=== PATIENT | female | born 1995 | race Hispanic/Latino ===

== ENCOUNTER 2019-04-03 17:46 | Emergency (ER) | payer SELFPAY ==
--- NOTE | 2019-04-03 18:01 | ER ---
Nurse's Notes [facility] Name: Tere Felix Age: 24 yrs Sex: Female : 1995 Arrival Date: 04/03/2019 Time: 17:46 Bed 24 Private MD: Unknown, Unknown Diagnosis: Pulpitis Presentation: 04/03 17:53 Presenting complaint: Patient states: toothache on the lower left side, reports taking em (6) 500 mg pills of Tylenol today for the pain, denies fever. Transition of care: patient was not received from another setting of care. Onset of symptoms was April 03, 2019. Risk Assessment: Do you want to hurt yourself or someone else? Patient reports no desire to harm self or others. Initial Sepsis Screen: Does the patient meet any 2 criteria? No. Patient's initial sepsis screen is negative. Does the patient have a suspected source of infection? No. Patient's initial sepsis screen is negative. Care prior to arrival: None. 17:53 Method Of Arrival: Ambulatory em 18:00 Acuity: PROSPER 5 ss Historical: - Allergies: 17:55 No Known Allergies; em - Home Meds: 17:55 None [Active]; em - PMHx: 17:55 None; em - PSHx: 17:55 None; em - Immunization history:: Adult Immunizations up to date. - Social history:: Smoking status: Patient/guardian denies using tobacco. - Ebola Screening: : Patient negative for fever greater than or equal to 101.5 degrees Fahrenheit, and additional compatible Ebola Virus Disease symptoms Patient denies exposure to infectious person Patient denies travel to an Ebola-affected area in the 21 days before illness onset No symptoms or risks identified at this time. Screenin:56 Abuse screen: Denies threats or abuse. Nutritional screening: No deficits noted. em Tuberculosis screening: No symptoms or risk factors identified. Fall Risk None identified. Assessment: 17:56 General: Appears in no apparent distress. comfortable, Behavior is calm, appropriate em for age, Denies fever. Pain: Complains of pain in left submandibular area Pain currently is 5 out of 10 on a pain scale. Neuro: Level of Consciousness is awake, alert, obeys commands, Oriented to person, place, time, situation, Appropriate for age. Cardiovascular: Capillary refill < 3 seconds Patient's skin is warm and dry. Respiratory: Airway is patent Respiratory effort is even, unlabored, Respiratory pattern is regular, symmetrical. EENT: Oral mucosa is moist. Throat is clear is pink. Derm: Skin is intact, is healthy with good turgor, Skin is pink, warm \T\ dry. Musculoskeletal: Capillary refill < 3 seconds, Range of motion: intact in all extremities. 18:00 General: The previous assessment is accurate. Call light remains within reach. . ss Vital Signs: 17:55 BP 121 / 74; Pulse 71; Resp 18; Temp 98.2; Pulse Ox 99% on R/A; Weight 54.88 kg; Height em 5 ft. 2 in. (157.48 cm); Pain 5/10; 17:55 Body Mass Index 22.13 (54.88 kg, 157.48 cm) em ED Course: 17:46 Patient arrived in ED. as 17:47 Serafin Lisa LVN is Primary Nurse. em 17:48 Unknown, Unknown is Private Physician. ag5 17:49 [facility] Delacruz [facility]. jr8 17:49 Herman Gomez MD is Attending Physician. jr8 17:55 Arm band placed on. em 17:56 Patient has correct armband on for positive identification. Bed in low position. Call em light in reach. 17:56 No provider procedures requiring assistance completed. Patient did not have IV access em during this emergency room visit. 18:00 Triage completed. ss Administered Medications: 18:10 Drug: TORadol - Ketorolac 15 mg Route: IM; Site: right deltoid; em 18:26 Follow up: Response: No adverse reaction; Pain is decreased em Outcome: 18:00 Discharge ordered by . johnny 18:14 Discharged to home ambulatory. em 18:14 Condition: good 18:14 Discharge instructions given to patient, Instructed on discharge instructions, follow up and referral plans. medication usage, Demonstrated understanding of instructions, follow-up care, medications, Prescriptions given X 2. 18:29 Patient left the ED. em Signatures: Serafin Lisa LVN LVN em Alee Pa Shelby, RN RN Layton Delacruz PA PA jr8 Swapna Hernandez ag5 Corrections: (The following items were deleted from the chart) 18:27 17:55 BP 121 / 74; Pulse 71bpm; Resp 18bpm; Pulse Ox 99% RA; 54.88 kg; Height 5 ft. 2 em in.; BMI: 22.1; Pain 5/10; em
--- NOTE | 2019-04-03 18:02 | EDPHYS ---
Physician Documentation [facility] Name: Tere Felix Age: 24 yrs Sex: Female : 1995 Arrival Date: 04/03/2019 Time: 17:46 Bed 24 Private MD: Unknown, Unknown ED Physician Herman Gomez HPI: 04/03 18:04 This 24 yrs old Female presents to ER via Ambulatory with complaints of jr8 Toothache. 18:04 The patient presents with pain, swelling. The problem is located in the left jr8 submandibular area. Onset: The symptoms/episode began/occurred 2 day(s) ago. Modifying factors: the symptoms are aggravated by chewing. Associated signs and symptoms: Pertinent negatives: fever, inability to eat, nausea, redness in area. Severity of symptoms: At their worst the symptoms were moderate, in the emergency department the symptoms have improved. Pt reports dental pain or the last few days. . Historical: - Allergies: 17:55 No Known Allergies; em - Home Meds: 17:55 None [Active]; em - PMHx: 17:55 None; em - PSHx: 17:55 None; em - Immunization history:: Adult Immunizations up to date. - Social history:: Smoking status: Patient/guardian denies using tobacco. - Ebola Screening: : Patient negative for fever greater than or equal to 101.5 degrees Fahrenheit, and additional compatible Ebola Virus Disease symptoms Patient denies exposure to infectious person Patient denies travel to an Ebola-affected area in the 21 days before illness onset No symptoms or risks identified at this time. ROS: 18:04 Constitutional: Negative for fever, chills, and weight loss, Eyes: Negative for injury, jr8 pain, redness, and discharge, ENT: Negative for injury, pain, and discharge, Neck: Negative for injury, pain, and swelling, Cardiovascular: Negative for chest pain, palpitations, and edema, Respiratory: Negative for shortness of breath, cough, wheezing, and pleuritic chest pain, Abdomen/GI: Negative for abdominal pain, nausea, vomiting, diarrhea, and constipation, Back: Negative for injury and pain, MS/Extremity: Negative for injury and deformity, Neuro: Negative for headache, weakness, numbness, tingling, and seizure. 18:04 ENT: Positive for dental pain. Exam: 18:05 Constitutional: This is a well developed, well nourished patient who is awake, alert, jr8 and in no acute distress. Head/Face: Normocephalic, atraumatic. Eyes: Pupils equal round and reactive to light, extra-ocular motions intact. Lids and lashes normal. Conjunctiva and sclera are non-icteric and not injected. Cornea within normal limits. Periorbital areas with no swelling, redness, or edema. Neck: Trachea midline, no thyromegaly or masses palpated, and no cervical lymphadenopathy. Supple, full range of motion without nuchal rigidity, or vertebral point tenderness. No Meningismus. Chest/axilla: Normal chest wall appearance and motion. Nontender with no deformity. No lesions are appreciated. Cardiovascular: Regular rate and rhythm with a normal S1 and S2. No gallops, murmurs, or rubs. Normal PMI, no JVD. No pulse deficits. Respiratory: Lungs have equal breath sounds bilaterally, clear to auscultation and percussion. No rales, rhonchi or wheezes noted. No increased work of breathing, no retractions or nasal flaring. Abdomen/GI: Soft, non-tender, with normal bowel sounds. No distension or tympany. No guarding or rebound. No evidence of tenderness throughout. Skin: Warm, dry with normal turgor. Normal color with no rashes, no lesions, and no evidence of cellulitis. MS/ Extremity: Pulses equal, no cyanosis. Neurovascular intact. Full, normal range of motion. 18:05 ENT: Dental exam: abscess, is not appreciated, cellulitis, is not appreciated, dental caries, that is mild. Vital Signs: 17:55 BP 121 / 74; Pulse 71; Resp 18; Temp 98.2; Pulse Ox 99% on R/A; Weight 54.88 kg; Height em 5 ft. 2 in. (157.48 cm); Pain 5/10; 17:55 Body Mass Index 22.13 (54.88 kg, 157.48 cm) em MDM: 17:49 Patient medically screened. [facility] 18:06 Data reviewed: vital signs, nurses notes, and as a result, I will discharge patient. [facility] Data interpreted: Pulse oximetry: on room air is 100 %. Interpretation: normal. Administered Medications: 18:10 Drug: TORadol - Ketorolac 15 mg Route: IM; Site: right deltoid; em 18:26 Follow up: Response: No adverse reaction; Pain is decreased em Disposition: 04/03/19 18:00 Discharged to Home. Impression: Pulpitis. - Condition is Stable. - Discharge Instructions: Dental Caries, Adult, Dental Pain. - Prescriptions for Amoxicillin 875 mg Oral Tablet - take 1 tablet by ORAL route every 12 hours for 10 days; 20 tablet. Ibuprofen 600 mg Oral Tablet - take 1 tablet by ORAL route every 6 hours As needed take with food; 30 tablet. - Medication Reconciliation Form, Thank You Letter, Antibiotic Education form. - Follow up: Private Physician; When: 2 - 3 days; Reason: Recheck today's complaints, Re-evaluation by your physician. - Problem is new. - Symptoms are unchanged. Signatures: Serafin Lisa, [employer]SEM[employer]ER [employer] ASSEMBLER em Layton Delacruz PA PA jr8 Corrections: (The following items were deleted from the chart) 18:29 18:00 04/03/2019 18:00 Discharged to Home. Impression: Pulpitis. Condition is Stable. em Forms are Medication Reconciliation Form, Thank You Letter, Antibiotic Education, Prescription Opioid Use. Follow up: Private Physician; When: 2 - 3 days; Reason: Recheck today's complaints, Re-evaluation by your physician. Problem is new. Symptoms are unchanged. jr8
[2019-04-03] MEDS ORDERED: KETOROLAC 30 MG/ML INJ ONE (18:05)
[2019-04-03 19:44] VITALS: BP 121/74; TEMP 98.2; O2SAT 99
== END 2019-04-03 18:29 | disposition home or self-care (01) ==
LOC: ER 17:46
DX: K04.01 Reversible pulpitis (principal)
CPT/HCPCS: 96372; 99283

== ENCOUNTER → 2023-07-17 | Emergency (ER) | payer OTHER, SELFPAY ==
[~2023-07-17] MED LIST: CEFTRIAXONE 1000 MG/VIAL ONE; NA CHLORIDE 0.9% 1,000 ML ONE
--- OUTSIDE RECORDS SUMMARY | 2023-07-17 10:11 | XMS REPORT | Continuity of Care Document ---
Author Name Unknown Address [address] [facility] [address] [place] [address] [facility] thconnect Address [address] [facility] [address] [place] [address] Care Team Providers Care Donor Specialist Name Role Phone CRISTINA FRAGA Primary Care Physician Unav ailable CRISTINA FRAGA Attending Clinician Unavail able Doctor Unassigned, [place] Attending Clinician U navailable Jovan WHCristina LAWSON Attending Clinician + IVONE BRANDT Attending Clinician Unavailable IVONE BRANDT Attending Clinician Unavailable 2, [facility] Us Room Attending Clinician UnavailIvone Day MD Attending Clinician [phone] Payers Payer Name Policy Type Policy Number Effective Date Expirati on Date Source [facility] [id number] 2023 00:00:00 [place] [id number] 2017 00:00:00 2017 00:00:00 Problems Condition Name Condition Details Condition Category Status Onset Date Resolution Date Last Treatment Date Treating Clinician Comments Source Atypical squamous cell changes of undetermin ed significan ce (ASCUS) on cervical cytology with negative high risk human papilloma virus (HPV) test result Atypical squamous cell changes of undetermin ed significan ce (ASCUS) on cervical cytology with negative high risk human papilloma virus (HPV) test result Disease Active 06-24 00:00: 00 Overview: Formattin g of this note might be different from the original. 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 As per ASCCP guideline s, will need repeat cytology in 12 months 12/2018 [facility] Rubella nonimmune status, delivered, current hospitaliz ation Rubella nonimmune status, delivered, current hospitaliz ation Disease Active 12-16 00:00: 00 Overview: Formattin g of this note might be different from the original. Address pp [facility] Allergies, Adverse Reactions, Alerts Allergy Name Allergy Type Status Severity Reaction(s) Onset Date Inactive Date Treating Clinician Comments Source NO KNOWN ALLERGIE S Drug Class Active [facility] Social History Social Habit Start Date Stop Date Quantity Comments Source ASSERTION 2023-02-03 00:00:00 [facility] intake 2023-06-12 00:00:00 2023-06-12 00:00:00 Current non-drinker of alcohol (finding) [facility] History of Social function 2018-12-24 00:00:00 2018-12-24 00:00:00 [facility] Tobacco use and exposure 2012-11-17 00:00:00 2012-11-17 00:00:00 Smokeless tobacco non-user [facility] Sex Assigned At 1995 00:00:00 1995 00:00:00 [facility] Smoking Status Start Date Stop Date Source Never smoked tobacco [facility] Medications Ordered Medication Name Filled Medication Name Start Date Stop Date Current Medication? Ordering Clinician Indication Dosage Frequency Signature (SIG) Comments Components Source rsu40-jpwz- folic acid 29 mg iron- 1 mg per tablet 2022-06 00:00: 00 Yes [id number] 1{tbl} Take 1 tablet by mouth in the morning. [facility] aqo87-vwap- folic acid 29 mg iron- 1 mg per tablet 2022-06 00:00: 00 Yes [id number] 1{tbl} Take 1 tablet by mouth in the morning. [facility] yxg88-upot- folic acid 29 mg iron- 1 mg per tablet 2022-06 00:00: 00 Yes [id number] 1{tbl} Take 1 tablet by mouth in the morning. [facility] fhj02-nmoy- folic acid 29 mg iron- 1 mg per tablet 2022-06 00:00: 00 Yes [id number] 1{tbl} Take 1 tablet by mouth in the morning. [facility] qho07-jojr- folic acid 29 mg iron- 1 mg per tablet 2022-06 00:00: 00 Yes [id number] 1{tbl} Take 1 tablet by mouth in the morning. [facility] mwe24-fwpj- folic acid 29 mg iron- 1 mg per tablet 2022-06 00:00: 00 Yes [id number] 1{tbl} Take 1 tablet by mouth in the morning. [facility] nvh19-fbft- folic acid 29 mg iron- 1 mg per tablet 2022-06 00:00: 00 Yes [id number] 1{tbl} Take 1 tablet by mouth in the morning. [facility] cbn12-boqu- folic acid 29 mg iron- 1 mg per tablet 2022-06 00:00: 00 Yes [id number] 1{tbl} Take 1 tablet by mouth in the morning. [facility] gur30-cryn- folic acid 29 mg iron- 1 mg per tablet 2022-06 00:00: 00 Yes [id number] 1{tbl} Take 1 tablet by mouth in the morning. [facility] pho68-wydd- folic acid 29 mg iron- 1 mg per tablet 2022-06 00:00: 00 Yes [id number] 1{tbl} Take 1 tablet by mouth in the morning. [facility] ikk34-oyhj- folic acid 29 mg iron- 1 mg per tablet 2022-06 00:00: 00 Yes [id number] 1{tbl} Take 1 tablet by mouth in the morning. [facility] eyd03-hcvq- folic acid 29 mg iron- 1 mg per tablet 2022-06 00:00: 00 Yes [id number] 1{tbl} Take 1 tablet by mouth in the morning. [facility] fluconazole (DIFLUCAN) 150 mg tablet 2022-06 00:00: 00 06-13 05:59 :00 Yes [id number] 150mg Take 1 tablet by mouth once now for 1 dose. [facility] fluconazole (DIFLUCAN) 150 mg tablet 2022-06 00:00: 00 06-13 05:59 :00 Yes [id number] 150mg Take 1 tablet by mouth once now for 1 dose. [facility] fluconazole (DIFLUCAN) 150 mg tablet 2022-06 00:00: 00 06-13 05:59 :00 Yes [id number] 150mg Take 1 tablet by mouth once now for 1 dose. [facility] fluconazole (DIFLUCAN) 150 mg tablet 2022-06 00:00: 00 06-13 05:59 :00 Yes [id number] 150mg Take 1 tablet by mouth once now for 1 dose. [facility] docusate calcium 240 mg capsule 08-01 00:00: 00 Yes [id number] 240mg Take 1 capsule by mouth once daily as needed for Constipati on. [facility] ferrous sulfate 325 mg (65 mg iron) tablet 08-01 00:00: 00 Yes [id number] 325mg Take 1 tablet by mouth 2 (two) times daily. [facility] ibuprofen 600 mg tablet 2019-0 2-16 00:00: 00 Yes [id number] 600mg Take 1 tablet by mouth every 6 (six) hours as needed for Pain (scale 1-3) or Pain (scale 4-6) (Pain). Take with food or milk. [facility] docusate calcium 240 mg capsule 16 00:00: 00 06-12 00:00 :00 No [id number] 240mg Take 1 capsule by mouth once daily as needed for Constipati on. [facility] ferrous sulfate 325 mg (65 mg iron) tablet 08-01 00:00: 00 06-12 00:00 :00 No [id number] 325mg Take 1 tablet by mouth 2 (two) times daily. [facility] ibuprofen 600 mg tablet 08-01 00:00: 00 06-12 00:00 :00 No [id number] 600mg Take 1 tablet by mouth every 6 (six) hours as needed for Pain (scale 1-3) or Pain (scale 4-6) (Pain). Take with food or milk. [facility] docusate calcium 240 mg capsule 08-01 00:00: 00 06-12 00:00 :00 No [id number] 240mg Take 1 capsule by mouth once daily as needed for Constipati on. [facility] ferrous sulfate 325 mg (65 mg iron) tablet 08-01 00:00: 00 06-12 00:00 :00 No [id number] 325mg Take 1 tablet by mouth 2 (two) times daily. [facility] ibuprofen 600 mg tablet 08-01 00:00: 00 06-12 00:00 :00 No [id number] 600mg Take 1 tablet by mouth every 6 (six) hours as needed for Pain (scale 1-3) or Pain (scale 4-6) (Pain). Take with food or milk. [facility] docusate calcium 240 mg capsule 08-01 00:00: 00 06-12 00:00 :00 No [id number] 240mg Take 1 capsule by mouth once daily as needed for Constipati on. [facility] ferrous sulfate 325 mg (65 mg iron) tablet 216 00:00: 00 06-12 00:00 :00 No [id number] 325mg Take 1 tablet by mouth 2 (two) times daily. [facility] ibuprofen 600 mg tablet 216 00:00: 00 06-12 00:00 :00 No [id number] 600mg Take 1 tablet by mouth every 6 (six) hours as needed for Pain (scale 1-3) or Pain (scale 4-6) (Pain). Take with food or milk. [facility] docusate calcium 240 mg capsule 16 00:00: 00 06-12 00:00 :00 No [id number] 240mg Take 1 capsule by mouth once daily as needed for Constipati on. [facility] ferrous sulfate 325 mg (65 mg iron) tablet 16 00:00: 00 06-12 00:00 :00 No [id number] 325mg Take 1 tablet by mouth 2 (two) times daily. [facility] ibuprofen 600 mg tablet 16 00:00: 00 06-12 00:00 :00 No [id number] 600mg Take 1 tablet by mouth every 6 (six) hours as needed for Pain (scale 1-3) or Pain (scale 4-6) (Pain). Take with food or milk. [facility] proMETHazin e 25 mg tablet 02-19 00:00: 00 Yes 25mg Take 1 tablet by mouth every 6 (six) hours as needed for Nausea and Vomiting (N/V). [facility] proMETHazin e 25 mg tablet 02-19 00:00: 00 06-12 00:00 :00 No 25mg Take 1 tablet by mouth every 6 (six) hours as needed for Nausea and Vomiting (N/V). [facility] proMETHazin e 25 mg tablet 02-19 00:00: 06-12 00:00 :00 No 25mg Take 1 tablet by mouth every 6 (six) hours as needed for Nausea and Vomiting (N/V). [facility] proMETHazin e 25 mg tablet 02-19 00:00: 00 06-12 00:00 :00 No 25mg Take 1 tablet by mouth every 6 (six) hours as needed for Nausea and Vomiting (N/V). [facility] proMETHazin e 25 mg tablet 02-19 00:00: 00 06-12 00:00 :00 No 25mg Take 1 tablet by mouth every 6 (six) hours as needed for Nausea and Vomiting (N/V). [facility] Immunizations Ordered Immunization Name Filled Immunization Name Date Status Comments Source Influenza Virus Vaccine Quad .5 mL IM 6+ MO (FLUZONE/FLULAVAL/FL UARIX) Unknown Completed [facility] MMR Unknown Completed [facility] Rubella Unknown Completed [facility] TD, NOS Unknown Completed [facility] Varicella (varivax)(chicken pox) Unknown Completed [facility] Influenza Virus Vaccine Unknown Completed [facility] TDAP Unknown Completed [facility] MMR Unknown Completed [facility] Influenza Virus Vaccine Quad IM Multi-dose 6+ MO Unknown Completed [facility] TDAP Unknown Completed [facility] TDAP Unknown Completed [facility] Influenza Virus Vaccine Quad .5 mL IM 6+ MO (FLUZONE/FLULAVAL/FL UARIX) Unknown Completed [facility] MMR Unknown Completed [facility] Rubella Unknown Completed [facility] TD, NOS Unknown Completed [facility] Varicella (varivax)(chicken pox) Unknown Completed [facility] Influenza Virus Vaccine Unknown Completed [facility] TDAP Unknown Completed [facility] MMR Unknown Completed [facility] Influenza Virus Vaccine Quad IM Multi-dose 6+ MO Unknown Completed [facility] TDAP Unknown Completed [facility] TDAP Unknown Completed [facility] Influenza Virus Vaccine Quad .5 mL IM 6+ MO (FLUZONE/FLULAVAL/FL UARIX) Unknown Completed [facility] MMR Unknown Completed [facility] Rubella Unknown Completed [facility] TD, NOS Unknown Completed [facility] Varicella (varivax)(chicken pox) Unknown Completed [facility] Influenza Virus Vaccine Unknown Completed [facility] TDAP Unknown Completed [facility] MMR Unknown Completed [facility] Influenza Virus Vaccine Quad IM Multi-dose 6+ MO Unknown Completed [facility] TDAP Unknown Completed [facility] TDAP Unknown Completed [facility] Influenza Virus Vaccine Quad .5 mL IM 6+ MO (FLUZONE/FLULAVAL/FL UARIX) Unknown Completed [facility] MMR Unknown Completed [facility] Rubella Unknown Completed [facility] TD, NOS Unknown Completed [facility] Varicella (varivax)(chicken pox) Unknown Completed [facility] Influenza Virus Vaccine Unknown Completed [facility] TDAP Unknown Completed [facility] MMR Unknown Completed [facility] Influenza Virus Vaccine Quad IM Multi-dose 6+ MO Unknown Completed [facility] TDAP Unknown Completed [facility] TDAP Unknown Completed [facility] Influenza Virus Vaccine Quad .5 mL IM 6+ MO (FLUZONE/FLULAVAL/FL UARIX) Unknown Completed [facility] MMR Unknown Completed [facility] Rubella Unknown Completed [facility] TD, NOS Unknown Completed [facility] Varicella (varivax)(chicken pox) Unknown Completed [facility] Influenza Virus Vaccine Unknown Completed [facility] TDAP Unknown Completed [facility] MMR Unknown Completed [facility] Influenza Virus Vaccine Quad IM Multi-dose 6+ MO Unknown Completed [facility] TDAP Unknown Completed [facility] TDAP Unknown Completed [facility] Influenza Virus Vaccine Quad .5 mL IM 6+ MO (FLUZONE/FLULAVAL/FL UARIX) Unknown Completed [facility] MMR Unknown Completed [facility] Rubella Unknown Completed [facility] TD, NOS Unknown Completed [facility] Varicella (varivax)(chicken pox) Unknown Completed [facility] Influenza Virus Vaccine Unknown Completed [facility] TDAP Unknown Completed [facility] MMR Unknown Completed [facility] Influenza Virus Vaccine Quad IM Multi-dose 6+ MO Unknown Completed [facility] TDAP Unknown Completed [facility] TDAP Unknown Completed [facility] Influenza Virus Vaccine Quad .5 mL IM 6+ MO (FLUZONE/FLULAVAL/FL UARIX) Unknown Completed [facility] MMR Unknown Completed [facility] Rubella Unknown Completed [facility] TD, NOS Unknown Completed [facility] Varicella (varivax)(chicken pox) Unknown Completed [facility] Influenza Virus Vaccine Unknown Completed [facility] TDAP Unknown Completed [facility] MMR Unknown Completed [facility] Influenza Virus Vaccine Quad IM Multi-dose 6+ MO Unknown Completed [facility] TDAP Unknown Completed [facility] TDAP Unknown Completed [facility] Influenza Virus Vaccine Quad .5 mL IM 6+ MO (FLUZONE/FLULAVAL/FL UARIX) Unknown Completed [facility] MMR Unknown Completed [facility] Rubella Unknown Completed [facility] TD, NOS Unknown Completed [facility] Varicella (varivax)(chicken pox) Unknown Completed [facility] Influenza Virus Vaccine Unknown Completed [facility] TDAP Unknown Completed [facility] MMR Unknown Completed [facility] Influenza Virus Vaccine Quad IM Multi-dose 6+ MO Unknown Completed [facility] TDAP Unknown Completed [facility] TDAP Unknown Completed [facility] Influenza Virus Vaccine Quad .5 mL IM 6+ MO (FLUZONE/FLULAVAL/FL UARIX) Unknown Completed [facility] MMR Unknown Completed [facility] Rubella Unknown Completed [facility] TD, NOS Unknown Completed [facility] Varicella (varivax)(chicken pox) Unknown Completed [facility] Influenza Virus Vaccine Unknown Completed [facility] TDAP Unknown Completed [facility] MMR Unknown Completed [facility] Influenza Virus Vaccine Quad IM Multi-dose 6+ MO Unknown Completed [facility] TDAP Unknown Completed [facility] Rubella Unknown Completed [facility] TDAP Unknown Completed [facility] Influenza Virus Vaccine Quad .5 mL IM 6+ MO (FLUZONE/FLULAVAL/FL UARIX) Unknown Completed [facility] MMR Unknown Completed [facility] Rubella Unknown Completed [facility] TD, NOS Unknown Completed [facility] TD, NOS Unknown Completed [facility] Varicella (varivax)(chicken pox) Unknown Completed [facility] Influenza Virus Vaccine Unknown Completed [facility] TDAP Unknown Completed [facility] MMR Unknown Completed [facility] Influenza Virus Vaccine Quad IM Multi-dose 6+ MO Unknown Completed [facility] TDAP Unknown Completed [facility] TDAP Unknown Completed [facility] Influenza Virus Vaccine Quad .5 mL IM 6+ MO (FLUZONE/FLULAVAL/FL UARIX) Unknown Completed [facility] MMR Unknown Completed [facility] Varicella (varivax)(chicken pox) Unknown Completed [facility] Influenza Virus Vaccine Unknown Completed [facility] TDAP Unknown Completed [facility] MMR Unknown Completed [facility] Influenza Virus Vaccine Quad IM Multi-dose 6+ MO Unknown Completed [facility] TDAP Unknown Completed [facility] TDAP Unknown Completed [facility] Influenza Virus Vaccine Quad .5 mL IM 6+ MO (FLUZONE/FLULAVAL/FL UARIX) Unknown Completed [facility] MMR Unknown Completed [facility] Rubella Unknown Completed [facility] TD, NOS Unknown Completed [facility] Varicella (varivax)(chicken pox) Unknown Completed [facility] Influenza Virus Vaccine Unknown Completed [facility] TDAP Unknown Completed [facility] MMR Unknown Completed [facility] Influenza Virus Vaccine Quad IM Multi-dose 6+ MO Unknown Completed [facility] TDAP Unknown Completed [facility] TDAP Unknown Completed [facility] Influenza Virus Vaccine Quad .5 mL IM 6+ MO (FLUZONE/FLULAVAL/FL UARIX) Unknown Completed [facility] MMR Unknown Completed [facility] Rubella Unknown Completed [facility] TD, NOS Unknown Completed [facility] Varicella (varivax)(chicken pox) Unknown Completed [facility] Influenza Virus Vaccine Unknown Completed [facility] TDAP Unknown Completed [facility] MMR Unknown Completed [facility] Influenza Virus Vaccine Quad IM Multi-dose 6+ MO Unknown Completed [facility] TDAP Unknown Completed [facility] TDAP Unknown Completed [facility] Vital Signs Vital Name Observation Time Observation Value Comments S ource Systolic blood pressure 2023-07-11 16:45:00 100 mm[Hg] [facility] Diastolic blood pressure 2023-07-11 16:45:00 67 mm[Hg] [facility] Heart rate 2023-07-11 16:45:00 90 /min [facility] Body temperature 2023-07-11 16:45:00 35.83 Bri [facility] Respiratory rate 2023-07-11 16:45:00 18 /min [facility] Body height 2023-07-11 16:45:00 157.5 cm [facility] Body weight 2023-07-11 16:45:00 65.046 kg [facility] BMI 2023-07-11 16:45:00 26.23 kg/m2 [facility] Systolic blood pressure 2023-06-12 14:58:00 110 mm[Hg] [facility] Diastolic blood pressure 2023-06-12 14:58:00 69 mm[Hg] [facility] Heart rate 2023-06-12 14:58:00 89 /min [facility] Body temperature 2023-06-12 14:58:00 35.78 Bri [facility] Respiratory rate 2023-06-12 14:58:00 18 /min [facility] Body height 2023-06-12 14:58:00 157.5 cm [facility] Body weight 2023-06-12 14:58:00 62.959 kg [facility] BMI 2023-06-12 14:58:00 25.39 kg/m2 [facility] Procedures Procedure Date / Time Performed Performing Clinicia n Source CONSENT FOR NIPT 2023-07-16 06:01:00 Doctor oJ signed, [place] [facility] POCT URINALYSIS 2023-07-11 16:47:00 Cristina Fraga [facility] SECOND AND THIRD TRIMESTER ULTRASOUND 2023-06-24 18:08:00 Cristina Fraga [facility] POCT URINALYSIS W/O SPECIFIC GRAVITY 2023-06-12 14:48:00 Cristina Frgaa [facility] POCT TEST 2023-06-12 14:47:00 Paddy Fraga [facility] ASSIGNMENT OF BENEFITS 2023-06-12 14:07:20 Docto r Unassigned, [place] [facility] Encounters Start Date/Time End Date/Time Encounter Type Admission Type Attending Clinicians Care Facility Care Department Encounter ID Source 2023-07-29 10:00:00 2023-07-29 10:00:00 Outpatient P [facility] [id number] [facility] 2023-07-16 00:00:00 2023-07-16 00:00:00 Orders Only Doctor Unassigned, [place] [facility] 1..114 [id number] [id number] [facility] 2023-07-11 10:30:00 2023-07-11 11:34:55 Outpatient R CRISTINA FRAGA [facility] [id number] [facility] 2023-07-11 10:30:00 2023-07-11 11:34:55 Routine Visit Cristina Fraga [facility] AGRONOMY SPECIALIST [facility]ILD [facility] [id number] [id number] [facility] 2023-06-25 00:00:00 2023-06-25 00:00:00 Abstract Cristina Fraga [facility] AGRONOMY SPECIALIST [facility] & CHILD [facility] 1.84.114 [id number] [id number] [facility] 2023-06-24 11:00:00 2023-06-24 12:32:18 Outpatient P IVONE BRANDT SHANNON [facility] [id number] [facility] 2023-06-24 11:00:00 2023-06-24 12:32:18 Instrument Tester Visit 2, [facility] 1.114 [id number] [id number] [facility] 2023-06-24 00:00:00 2023-06-24 00:00:00 Telephone Jovan Cristina Da Silva [facility] AGRONOMY SPECIALIST [facility] CHILD [facility] [id number] [facility] 2023-06-19 00:00:00 2023-06-19 00:00:00 Telephone Cristina Fraga Avinash [facility] AGRONOMY SPECIALIST [facility] CHILD [facility] [id number] [facility] 2023-06-12 08:00:00 2023-06-12 09:37:22 Outpatient CRISTINA SURESH [facility] [id number] [facility] 2023-06-12 08:30:00 2023-06-12 09:37:13 Initial Visit Cristina Fraga [facility] AGRONOMY SPECIALIST [facility] CHILD [facility] [id number] [id number] [facility] 2023-06-12 00:00:00 2023-06-12 00:00:00 Orders Only Doctor Unassigned, [place] [facility] [id number] [id number] [id number] [id number] [facility] 2023-05-27 08:30:00 2023-05-27 08:30:00 Outpatient R [facility]RISTINA FRAGA [facility] [id number] [facility] 2018-09-14 15:00:00 2018-09-14 16:22:11 Outpatient CRISTINA SURESH [facility] [id number] [facility] Results Test Description Test Time Test Comments Results Result Co mments Source [facility] Urinalysis w/o Specific [id number] 14:51:00* Test Item Value Reference Range Interpretation Comme nts POCT PH U (test code = 3254) 6 mg/dl 5-8 POCT U LEUK EST (test code = 3263) 1+ Negative - Negative POCT U NIT (test code = 3262) pos Negative - Negati ve POCT U PROT (test code = 3259) trace Negative - Negat chino POCT U GLU (test code = 3256) neg Negative - Negati ve POCT U KETONE (test code = 3258) neg Negative - Neg ative POCT U BLD (test code = 3257) 50 Negative - Negati ve [facility] Urinalysis w/o Specific [id number] 14:51:00* Test Item Value Reference Range Interpretation Comme nts POCT PH U (test code = 3254) 6 mg/dl 5-8 POCT U LEUK EST (test code = 3263) 1+ Negative - Negative POCT U NIT (test code = 3262) pos Negative - Negati ve POCT U PROT (test code = 3259) trace Negative - Negat chino POCT U GLU (test code = 3256) neg Negative - Negati ve POCT U KETONE (test code = 3258) neg Negative - Neg ative POCT U BLD (test code = 3257) 50 Negative - Negati ve [facility] Urinalysis w/o Specific [id number] 14:51:00* Test Item Value Reference Range Interpretation Comme nts POCT PH U (test code = 3254) 6 mg/dl 5-8 POCT U LEUK EST (test code = 3263) 1+ Negative - Negative POCT U NIT (test code = 3262) pos Negative - Negati ve POCT U PROT (test code = 3259) trace Negative - Negat chino POCT U GLU (test code = 3256) neg Negative - Negati ve POCT U KETONE (test code = 3258) neg Negative - Neg ative POCT U BLD (test code = 3257) 50 Negative - Negati ve [facility] Urinalysis w/o Specific [id number] 14:51:00* Test Item Value Reference Range Interpretation Comme nts POCT PH U (test code = 3254) 6 mg/dl 5-8 POCT U LEUK EST (test code = 3263) 1+ Negative - Negative POCT U NIT (test code = 3262) pos Negative - Negati ve POCT U PROT (test code = 3259) trace Negative - Negat chino POCT U GLU (test code = 3256) neg Negative - Negati ve POCT U KETONE (test code = 3258) neg Negative - Neg ative POCT U BLD (test code = 3257) 50 Negative - Negati ve [facility] [id number] 14:47:00* Test Item Value Reference Range Interpretation Comme nts POCT PREG (test code = 1605) Positive On board controls acceptable with C Line (test code = 3574) Yes POCT PREG LOT # (test code = 3575) POCT PREG TEST DATE ( test code = 3576) [facility] [id number] 14:47:00* Test Item Value Reference Range Interpretation Comme nts POCT PREG (test code = 1605) Positive On board controls acceptable with C Line (test code = 3574) Yes POCT PREG LOT # (test code = 3575) POCT PREG TEST DATE ( test code = 3576) [facility] [id number] 14:47:00* Test Item Value Reference Range Interpretation Comme nts POCT PREG (test code = 1605) Positive On board controls acceptable with C Line (test code = 3574) Yes POCT PREG LOT # (test code = 3575) POCT PREG TEST DATE ( test code = 3576) [facility] [id number] 14:47:00* Test Item Value Reference Range Interpretation Comme nts POCT PREG (test code = 1605) Positive On board controls acceptable with C Line (test code = 3574) Yes POCT PREG LOT # (test code = 3575) POCT PREG TEST DATE ( test code = 3576) [facility] Notes Date/Time Note Provider Source 2023-06-24 16:40:22 g9Y/Tsk8f7+6KLBDXyEO axMTLs703sZ /lsRuOtBCBkKr102C/O5mxpzvNzMiID IW7974-50-09K26:40:22 Called pt, discussed pap smear results and POC. Verbalized understanding.Roshni Garcia RN 06/24/23 4:41 PM 50819-9Qmwlcqpfv encounter JqpmOV9771-39-16G79:42:35Teleph one encounter NoteTXT1.2.840.055096.1.13.104. 2.7.2.160583|[id number] ble for patient cpbb34570-2LagrJNFRYGSUNQIAlfny tted C-CDA narrative text[address] LkzdMuiewqmskBuvlimkieGGXM53045 11733BDYLIVWTQJKWAQLBPPCWPR4875 -01-09T16:42:351.2.840.206895.1 .72.3.15|1.2.840.657757.1.13.10 4.2.7.2.727879_[id number] [facility] 2023-06-24 15:37:30 SC8l37gXggl/eeNOvu53 LAYUYoQ0V3V OHrUzNHS8CYYEEou7KyaW+/GRlt0pBv 8c6491-75-09U81:37:30 ASCUS pap , neg HPV, will need repeat pap in 3 year 63772FvucudksATUL Marroquin 06/24/2023 3:37 PM 96275-6Brxtcrjbx encounter XnvvME9433-56-46P11:37:56Teleph one encounter NoteTXT1.2.840.360490.1.13.104. 2.7.2.971481|[id number] ble for patient tlnc82514-1BifcSECMTTMLAVACauak tted C-CDA narrative text[address]TX[place] 61841MNKVULUTYUNMCFQGLWYPJY5474 -01-09T15:37:561.2.840.121446.1 .72.3.15|1.2.840.870292.1.13.10 4.2.7.2.727879_[id number] [facility] 2023-06-19 16:40:57 OhCsRM+LbeaknQ90oH4b rbWzqgvPGyd I6qdINuRsyGEsmVQOMQLjtVWtpu9qtt /Z7982-68-37A32:40:57 Patient informed USG orders were placed, number to department given to patient. 89286-7Xuzyftgvw encounter DlkcZH1957-02-69Y89:41:40Teleph one encounter NoteTXT1.2.840.533982.1.13.104. 2.7.2.366295|[id number] ble for patient ronq41619-3BhseCICOSJTVCKIHbsik tted C-CDA narrative [id number] Garcia [address] 35540TCBOFBSSHWOWSRCFVSZORR4940 -01-04T16:41:401.2.840.294534.1 .72.3.15|1.2.840.632108.1.13.10 4.2.7.2.727879_[id number] Fatoumata Moon LVN [facility] 2023-06-19 16:38:17 YkceLLAZxRrxQJJPzHY/ aOcNFzRyqHZ TvzoHb2FhFKh0yZMjR5aJ5Ny+v4+S1e si9452-00-29Z50:38:17 Orders placedATUL Marroquin 06/19/2023 4:38 PM 68717-5Eopltlhsn encounter FwvuHW8173-24-03G68:38:33Teleph one encounter NoteTXT1.2.840.507234.1.13.104. 2.7.2.483590|[id number] ble for patient stfn81130-3YtifJNWUKBKRCCTNjzvd tted C-CDA narrative [address] 10762YTYAFPLVRTTEONCEWBJNHR7448 -01-04T16:38:331.2.840.498340.1 .72.3.15|1.2.840.332471.1.13.10 4.2.7.2.727879_[id number] [facility] 2023-06-19 08:58:18 6npfpAtSF3kxNJXjXlts BiYtnDuo7Pe UbliR/07a3ikxHmjkn1bGDhi1Urvc4H 0l3478-80-67G35:58:18 Jennifer Felix is a 28 year old female calling requesting an referral for US. Please contact patient at [phone] signed by Sarai Ramachandran at 06/19/2023 9:00 AM EGK27801-9Obnjcipka encounter OgesZF2376-28-68B64:00:15Teleph one encounter NoteTXT1.2.840.998293.1.13.104. 2.7.2.735190|[id number] ble for patient sjfi25371-2KdujVZMSTTMMNCMEooqt tted C-CDA narrative [id number] D Larson[address] 85803VMZKJECISICKWPAMQUBYZL8746 -01-04T09:00:151.2.840.949374.1 .72.3.15|1.2.840.454791.1.13.10 4.2.7.2.727879_[id number] Sarai Ramachandran [facility]"
[2023-07-17 10:39] LABS: Absolute Lymphocytes (CBC) 1.2 K/uL (0.7-4.9); Hematocrit 31.3 % (36.0-45.0); Lymphocytes % 16.1 % (15.3-44.8); MCV 87.1 fL (80-100); MPV 8.2 fL (7.6-11.3); Platelets 314 thou/uL (152-406); RBC Red Blood Cell Count 3.59 M/uL (3.86-4.86)
[2023-07-17 10:55] LABS: Albumin 2.8 g/dL (3.4-5.0); Bilirubin Total 0.2 mg/dL (0.2-1.0); Potassium 3.7 mEq/L (3.5-5.1); Protein, Total 7.2 g/dL (6.4-8.2)
[2023-07-17 11:20] LABS: Specific Gravity 1.028 (1.005-1.030); Urine Bacteria None Seen /HPF (<20); Urine Bilirubin NEGATIVE (Negative); Urine Blood Negative (Negative); Urine Clarity Turbid (Clear); Urine Color Yellow (Yellow); Urine Glucose NEGATIVE (Negative); Urine Mucus Slight /HPF (None Seen); Urine Protein TRACE (Negative); Urine RBC <5 /HPF (None Seen); Urine Urobilinogen Normal (Normal)
--- NOTE | 2023-07-17 11:27 | RAD REPORT ---
EXAM DESCRIPTION: US - OB Limited - 07/17/2023 10:55 am CLINICAL HISTORY: ABD CRAMPING, COMPARISON: No comparisons FINDINGS: Single gestation noted. Positive heart tones. The heart rate is measured 135 b eats per minute. movement is present. The cervix is closed and measures 2.6 cm which is lower l imits of normal. The placenta is posterior. No previa. SHEREE is subjectively normal. Femur length: 4.3 cm, 24 week 0 day The maternal adnexa show no worrisome findings. IMPRESSION: Single viable IUP measuring 24 week 0 day with TALAT of 11/06/2023. SHEREE is subjectively no rmal. Closed cervix.
--- NOTE | 2023-07-17 12:30 | ER ---
Nurse's Notes [facility] Name: Tere Felix Age: 28 yrs Sex: Female : 1995 Arrival Date: 07/17/2023 Time: 10:08 Bed 20 Private MD: Diagnosis: Fall on same level, unspecified;26 weeks gestation of ;UTI/ Urinary tract infection, site not specified;Unspecified symptoms and signs involving the musculoskeletal system Presentation: 07/17 10:15 Care prior to arrival: None. rs5 10:15 Mechanism of Injury: Fall pt slipped in bathtub, fell, and landed on her right hip. rs5 Trauma event details: Injury occurred in the [facility]. 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 No pain at this time, but worried about the baby. 6 months . G5, P3. Coronavirus screen: Client denies travel out of the [place] in the last 14 days. At this time, the client does not indicate any symptoms associated with coronavirus-19. Ebola Screen: Patient denies travel to an Ebola-affected area in the 21 days before illness onset. Initial Sepsis Screen: Does the patient meet any 2 criteria? No. Patient's initial sepsis screen is negative. Does the patient have a suspected source of infection? No. Patient's initial sepsis screen is negative. Risk Assessment: Do you want to hurt yourself or someone else? Patient reports no desire to harm self or others. Onset of symptoms was July 17, 2023. 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 - Social history:: Smoking status: Patient denies any tobacco usage or history of. - Immunization history: Last tetanus immunization: - up to date. Screenin:15 [facility] ED Fall Risk Assessment (Adult) History of falling in the last 3 months, rs5 including since admission Yes- single mechanical fall (1 pt) Confusion or Disorientation No (0 pts) Intoxicated or Sedated No (0 pts) Impaired Gait No (0 pts) Mobility Assist Device Used No (0 pt) Altered Elimination No (0 pt) Score/Fall Risk Level 0 - 2 = Low Risk Oriented to surroundings, Maintained a safe environment. Abuse screen: Denies threats or abuse. Nutritional screening: No deficits noted. Tuberculosis screening: No symptoms or risk factors identified. Primary Survey: 10:15 NO uncontrolled hemorrhage observed. A: The client is awake and alert. The airway is rs5 patent. Breathing/Chest: Spontaneous respiratory effort, equal unlabored respirations, breath sounds clear bilaterally, regular pattern, symmetrical chest rise and fall. Respiratory effort: spontaneous, Respiratory pattern: regular, Chest inspection: symmetrical rise and fall of the chest. Circulation: No external hemorrhage present. Regular and strong central pulse, skin warm/dry/normal color. Disability Pupils are equal, round, reactive to light and accommodation. Client is alert. Exposure/Environment:. Exposure/Environment: A warming method has been applied: A warm blanket has been provided to the patient. Reassessment Alertness and Airway: Awake and alert. The airway is patent. Breathing: Spontaneous respiratory effort, equal unlabored respirations, breath sounds clear bilaterally, regular pattern with symmetrical chest rise and fall. Respiratory effort Spontaneous Breath sounds Clear Respiratory pattern Regular Chest inspection Symmetrical Circulation: No external hemorrhage noted. Regular and strong central pulse, skin warm/dry/normal color. Disability: Pupils Pupils are equal, round, reactive to light and accomodation. Alert. Assessment: 10:15 General: Appears in no apparent distress. comfortable, Behavior is cooperative, rs5 anxious. Pain: Denies pain. Neuro: Level of Consciousness is awake, alert, obeys commands, Oriented to person, place, time, situation. Cardiovascular: Heart tones S1 S2 present Patient's skin is warm and dry. Rhythm is regular. Respiratory: Airway is patent Respiratory effort is even, unlabored, Respiratory pattern is regular, symmetrical, Breath sounds are clear bilaterally. 10:15 GI: Abdomen is round pt states "I am six months " Abd is soft and non tender X rs5 4 quads. Patient currently denies nausea, pain. : No signs and/or symptoms were reported regarding the genitourinary system. EENT: No signs and/or symptoms were reported regarding the EENT system. Derm: Skin is intact, Skin is dry, Skin is normal, Skin temperature is warm. Musculoskeletal: Circulation, motion, and sensation intact. Range of motion: intact in all extremities, Pt states "I slipped earlier in the bathtub and landed on my right hip, it doesn't hurt, I don't have a bruise but since I am I would just like to get checked out". Vital Signs: 10:16 BP 116 / 71; Pulse 80; Resp 16; Temp 97.6; Pulse Ox 99% ; Weight 64.86 kg; Height 5 ft. ll1 2 in. ; Pain 0/10; 10:20 BP 117 / 72; Pulse 77; Resp 18; Temp 97.7(O); Pulse Ox 99% on R/A; rs5 12:38 BP 104 / 58; Pulse 81; Resp 18 S; Pulse Ox 100% on R/A; as6 10:16 Body Mass Index 26.15 (64.86 kg, 157.48 cm) ll1 10:16 Pain Scale: Adult ll1 Jesse Coma Score: 10:15 Eye Response: spontaneous(4). Motor Response: obeys commands(6). Verbal Response: rs5 oriented(5). Total: 15. Trauma Score (Adult): 10:15 Eye Response: spontaneous(1); Verbal Response: oriented(1); Motor Response: obeys rs5 commands(2); Systolic BP: > 89 mm Hg(4); Respiratory Rate: 10 to 29 per min(4); Jesse Score: 15; Trauma Score: 12 ED Course: 10:09 Patient arrived in ED. rg4 10:10 Elbert Alegria MD is Attending Physician. tremaine 10:15 Patient has correct armband on for positive identification. Bed in low position. Call rs5 light in reach. Side rails up X2. 10:15 Patient maintains SpO2 saturation greater than 95% on room air. rs5 10:15 Thermoregulation: warm blanket given to patient. rs5 10:16 Arm band placed on Patient placed in an exam room, on a stretcher. ll1 10:18 Godfrey Gomez, RN is Primary Nurse. rs5 10:18 Triage completed. ll1 10:20 Inserted saline lock: 20 gauge in right antecubital area, using aseptic technique. rs5 Blood collected. 10:57 US OB Limited In Process Unspecified. EDMS 10:57 No provider procedures requiring assistance completed. rs5 12:38 IV discontinued, intact, bleeding controlled, No redness/swelling at site. Pressure as6 dressing applied. 12:39 Provided Education on: follow up, rx teaching. as6 Administered Medications: 10:27 Drug: NS 0.9% IV 1000 ml IV at 1 bolus Per protocol; 1000 mL bolus Route: IV; Rate: 1 rs5 bolus; Site: right antecubital; 12:39 Follow up: IV Status: Completed infusion; IV Intake: 1000ml as6 12:19 Drug: Rocephin IV 1 grams IV at per protocol once; Given slow IV push per pharmacy me1 instructions Route: IV; Rate: per protocol; Site: right antecubital; 12:39 Follow up: Response: No adverse reaction; IV Status: Completed infusion; IV Intake: 72pkqk4 Medication: 10:58 VIS not applicable for this client. rs5 Intake: 12:39 IV: 1000ml; Total: 1000ml. as6 12:39 IV: 10ml; Total: 1010ml. as6 Outcome: 12:30 Discharge ordered by MD. penaloza 12:38 Discharged to home ambulatory, with significant other, as6 12:38 Condition: stable 12:38 Discharge instructions given to patient, Instructed on discharge instructions, follow up and referral plans. medication usage, Demonstrated understanding of instructions, follow-up care, medications, Prescriptions given X 2, 12:39 Patient left the ED. as6 Signatures: Dispatcher [employer] EDElbert Gonzalez MD MD cha Garcia, Rubi rg4 Monica Pastrana RN RN ll1 Jose Davis RN RN as6 Godfrey Gomez RN RN rs5 Angi Oswald, SHAINA RN me1
--- NOTE | 2023-07-17 12:30 | EDPHYS ---
Physician Documentation [facility] Name: Tere Felix Age: 28 yrs Sex: Female : 1995 Arrival Date: 07/17/2023 Time: 10:08 Bed 20 Private MD: ED Physician Elbert Alegria HPI: 07/17 12:21 This 28 yrs old Female presents to ER via Ambulatory with complaints of Fall tremaine Injury, 6 months , Back Pain. 12:21 Details of fall: The patient fell from an upright position, while walking. Onset: The tremaine symptoms/episode began/occurred just prior to arrival. Associated injuries: The patient sustained injury to the abdomen, specifically the posterior aspect of right lateral abdomen, anterior aspect of right lateral abdomen and right lower quadrant, contusion. Severity of symptoms: At their worst the symptoms were mild, in the emergency department the symptoms are unchanged. The patient has not experienced similar symptoms in the past. 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 - Social history:: Smoking status: Patient denies any tobacco usage or history of. - Immunization history: Last tetanus immunization: - up to date. ROS: 12:23 Constitutional: Negative for fever, chills, and weight loss, Eyes: Negative for injury, tremaine pain, redness, and discharge, ENT: Negative for injury, pain, and discharge, Neck: Negative for injury, pain, and swelling, Cardiovascular: Negative for chest pain, palpitations, and edema, Respiratory: Negative for shortness of breath, cough, wheezing, and pleuritic chest pain, Back: Negative for injury and pain, : Negative for injury, bleeding, discharge, and swelling, MS/Extremity: Negative for injury and deformity, Skin: Negative for injury, rash, and discoloration, Neuro: Negative for headache, weakness, numbness, tingling, and seizure, Psych: Negative for depression, anxiety, suicide ideation, homicidal ideation, and hallucinations, Allergy/Immunology: Negative for hives, rash, and allergies, 12:23 Abdomen/GI: Positive for abdominal pain, of the posterior aspect of right lateral abdomen and anterior aspect of right lateral abdomen, Exam: 12:23 Constitutional: This is a well developed, well nourished patient who is awake, alert, tremaine and in no acute distress. Head/Face: Normocephalic, atraumatic. Eyes: Pupils equal round and reactive to light, extra-ocular motions intact. Lids and lashes normal. Conjunctiva and sclera are non-icteric and not injected. Cornea within normal limits. Periorbital areas with no swelling, redness, or edema. ENT: Nares patent. No nasal discharge, no septal abnormalities noted. Tympanic membranes are normal and external auditory canals are clear. Oropharynx with no redness, swelling, or masses, exudates, or evidence of obstruction, uvula midline. Mucous membranes moist. Neck: Trachea midline, no thyromegaly or masses palpated, and no cervical lymphadenopathy. Supple, full range of motion without nuchal rigidity, or vertebral point tenderness. No Meningismus. Chest/axilla: Normal chest wall appearance and motion. Nontender with no deformity. No lesions are appreciated. Cardiovascular: Regular rate and rhythm with a normal S1 and S2. No gallops, murmurs, or rubs. Normal PMI, no JVD. No pulse deficits. Respiratory: Lungs have equal breath sounds bilaterally, clear to auscultation and percussion. No rales, rhonchi or wheezes noted. No increased work of breathing, no retractions or nasal flaring. Skin: Warm, dry with normal turgor. Normal color with no rashes, no lesions, and no evidence of cellulitis. MS/ Extremity: Pulses equal, no cyanosis. Neurovascular intact. Full, normal range of motion. Neuro: Awake and alert, GCS 15, oriented to person, place, time, and situation. Cranial nerves II-XII grossly intact. Motor strength 5/5 in all extremities. Sensory grossly intact. Cerebellar exam normal. Normal gait. 12:23 Abdomen/GI: Inspection: gravid appearance, Bowel sounds: normal, Palpation: mild abdominal tenderness, in the posterior aspect of right lateral abdomen and anterior aspect of right lateral abdomen, Liver: no appreciated palpable abnormalities, Hernia: not appreciated, Vital Signs: 10:16 BP 116 / 71; Pulse 80; Resp 16; Temp 97.6; Pulse Ox 99% ; Weight 64.86 kg; Height 5 ft. ll1 2 in. ; Pain 0/10; 10:20 BP 117 / 72; Pulse 77; Resp 18; Temp 97.7(O); Pulse Ox 99% on R/A; rs5 12:38 BP 104 / 58; Pulse 81; Resp 18 S; Pulse Ox 100% on R/A; as6 10:16 Body Mass Index 26.15 (64.86 kg, 157.48 cm) ll1 10:16 Pain Scale: Adult ll1 Ono Coma Score: 10:15 Eye Response: spontaneous(4). Motor Response: obeys commands(6). Verbal Response: rs5 oriented(5). Total: 15. Trauma Score (Adult): 10:15 Eye Response: spontaneous(1); Verbal Response: oriented(1); Motor Response: obeys rs5 commands(2); Systolic BP: > 89 mm Hg(4); Respiratory Rate: 10 to 29 per min(4); Ono Score: 15; Trauma Score: 12 MDM: 10:10 Patient medically screened. [facility] 12:26 Differential diagnosis: closed head injury, contusion, multiple trauma, sprain, strain. tremaine Differential diagnosis: Mesenteric ischemia or infarction, non-specific abd pain. Data reviewed: vital signs, nurses notes, lab test result(s), radiologic studies, ultrasound. Consideration of Admission/Observation Escalation of care including admission/observation considered. I considered the following discharge prescriptions or medication management in the emergency department Medications were administered in the Emergency Department. See MAR. Independent interpretation of the following test(s) in the Emergency Department Radiology Department Ultrasound: My interpretation is preg usg. Test considered but Not performed: X-ray: no cxr. 07/17 10:15 Order name: CBC with Diff; Complete Time: 11:50 [facility] 07/17 10:15 Order name: Comprehensive Metabolic Panel; Complete Time: 11:50 [facility] 07/17 10:15 Order name: Urinalysis w/ reflexes; Complete Time: 11:50 [facility] 07/17 10:15 Order name: Abo/rh Typing; Complete Time: 11:50 [facility] 07/17 10:15 Order name: US OB Limited; Complete Time: 11:50 [facility] 07/17 12:32 Order name: INCENTIVE SPIROMETRY tremaine Administered Medications: 10:27 Drug: NS 0.9% IV 1000 ml IV at 1 bolus Per protocol; 1000 mL bolus Route: IV; Rate: 1 rs5 bolus; Site: right antecubital; 12:39 Follow up: IV Status: Completed infusion; IV Intake: 1000ml as6 12:19 Drug: Rocephin IV 1 grams IV at per protocol once; Given slow IV push per pharmacy me1 instructions Route: IV; Rate: per protocol; Site: right antecubital; 12:39 Follow up: Response: No adverse reaction; IV Status: Completed infusion; IV Intake: [id number] Disposition Summary: 07/17/23 12:30 Discharge Ordered Notes: Location: Home tremaine Problem: new tremaine Symptoms: have improved tremaine Condition: Stable tremaine Diagnosis - Fall on same level, unspecified tremaine - 26 weeks gestation of tremaine - UTI/ Urinary tract infection, site not specified tremaine - Unspecified symptoms and signs involving the musculoskeletal system tremaine Followup: tremaine - With: Private Physician - When: 2 - 3 days - Reason: Recheck today's complaints, Continuance of care, Re-evaluation by your physician Discharge Instructions: - Discharge Summary Sheet tremiane - Fall Prevention in the Home, Adult tremaine - Musculoskeletal Pain tremaine - Care tremaine - Urinary Tract Infection, Adult [facility] - How to Use an Incentive Spirometer [facility] Forms: - Medication Reconciliation Form [facility] - Thank You Letter [facility] - Antibiotic Education [facility] - Prescription Opioid Use tremaine - Patient Portal Instructions [facility] - Leadership Thank You Letter [facility] Prescriptions: - Tylenol 325 mg Oral tablet - take 2 tablets ORAL route every 6 hours as needed; 60 tablet; Refills: 0, [facility] Product Selection Permitted - Macrobid 100 mg Oral Capsule - take 1 capsule ORAL route every 12 hours for 7 days; 14 capsule; Refills: 0, [facility] Product Selection Permitted Signatures: Dispatcher [employer] Elbert Fitzgerald MD MD cha Lewis, Lynsay RN RN ll1 Godfrey Gomez RN RN rs5 Angi Oswald RN RN me1 Jose Davis RN as6
[2023-07-17 13:09] VITALS: BP 104/58; TEMP 97.7; O2SAT 100
== END ==
LOC: ER 10:08
DX: O23.42 Unspecified infection of urinary tract in pregnancy, second trimester (principal); N39.0 Urinary tract infection, site not specified; R29.91 Unspecified symptoms and signs involving the musculoskeletal system; W18.30XA Fall on same level, unspecified, initial encounter; Z3A.26 26 weeks gestation of pregnancy
CPT/HCPCS: 85025; 81001; 36415; 86900; 86901; 80053; 76815; J7030; J0696